=== PATIENT | male | born 1975 | race Caucasian/White ===

== ENCOUNTER 2025-02-05 10:44 | Emergency (ER) | payer OTHER, SELFPAY ==
[2025-02-05 11:07] VITALS: BP 128/83; PULSE 63; RESP 16; TEMP 36.6; O2SAT 99
--- NOTE | 2025-02-05 12:03 | ED_ITS ---
HPI - Wound/Laceration General Chief Complaint: Wound/Laceration Stated Complaint: Cut Leg Time Seen by Provider: 02/05/25 11:58 Source: patient and RN notes reviewed Mode of arrival: ambulatory Limitations: no limitations History of Present Illness HPI narrative: Patient presents today complaining of a laceration to the right upper leg that was sustained 2-1/2 hours prior to exam at home. He states he dropped an angle precision jig grinder, it bounced up and cut him in the leg. He is up-to-date on his tetanus vaccine. Currently rates his pain 07/30. No [id number] interventions prior to arrival. He presented to a different [facility] who told him that he may need an x-ray, and sent him to [facility] for further evaluation. Related Data Allergies Allergy/AdvReac Type Severity Reaction Status Date / Time No Known Allergies Allergy Verified 02/05/25 11:00 PMFSH Comments At time of signature, I have reviewed and agree with nursing past medical, surgical, social and family history unless otherwise noted. Please see nursing chart for further information. There is no relevant family history pertinent to the presenting complaint Exam Narrative: GENERAL: Well-appearing, well-nourished, and in no acute distress. HEAD: Normocephalic, atraumatic. EYES: EOMI. No redness or drainage. Conjunctivae normal. ENT: Mucous membranes pink and moist. NECK: Normal AROM. CHEST: No respiratory distress. EXTREMITIES: Normal range of motion. No edema. SKIN: Warm, dry, no rash. Capillary refill normal. Normal skin turgor. 4 cm full-thickness linear laceration just into the subcutaneous tissue, mildly contaminated. Laceration is just above the patella. No abnormal movement of the patella. No tenderness to the patella. Full range of motion of the knee without pain or difficulty. Distal sensation intact. Capillary refill normal. NEURO: No focal deficits. Alert and oriented x3. Gait steady. PSYCH: Normal affect. No signs of depression or anxiety. Course Course Level of Care: Express Care Visit Vital Signs Vital signs: Vital Signs Temperature 97.8 F 02/05/25 11:07 Pulse Rate 63 02/05/25 11:07 Respiratory Rate 16 02/05/25 11:07 Blood Pressure 128/83 02/05/25 11:07 Pulse Oximetry 99 02/05/25 11:07 Oxygen Delivery Room Air 02/05/25 11:07 Temperature 97.8 F 02/05/25 11:07 Pulse Rate 63 02/05/25 11:07 Respiratory Rate 16 02/05/25 11:07 Blood Pressure 128/83 02/05/25 11:07 Pulse Oximetry 99 02/05/25 11:07 Oxygen Delivery Room Air 02/05/25 11:07 Reviewed Procedures Laceration Laceration 1: Date: 02/05/25 Time: 12:49 Site: lower extremity Side (If applicable): right Size (cm): 4 Description: linear Depth: simple, single layer Local Anesthetic: lidocaine 1% and with epi Amount of anesthesia used (mL): 4 Pre-repair: wound explored, irrigated extensively and minor debridement ====== Skin Level ====== Skin layer closed with: nylon Size (cm): 4-0 Number of sutures: 4 Technique: other ([id number]) ====== Subcutaneous Layer ====== ====== Muscle Layer ====== ====== Tendon Layer ====== Dressing: Patient tolerated procedure well. MDM - Wound/Laceration MDM Narrative Medical decision making narrative: 56-year-old male presents today with a laceration above the right patella that was sustained today prior to arrival when he dropped an angle precision jig grinder and it bounced off his garage floor and his leg. Wound was extensively irrigated and mildly debrided of small amount of tissue that had been cauterized by the hot angle precision jig grinder. Repaired with 4-0 sutures. Due to contamination, patient will be started on a course of Augmentin to prevent infection. He is up-to-date on his tetanus vaccine. Vital signs stable. Care instructions given. Differential Diagnosis Differential diagnosis: Likely laceration and avulsion of skin Critical Care Time Critical Care Time Critical Care Time: No Discharge Plan Discharge Clinical Impression: Laceration of right thigh Qualifiers: Encounter type: initial encounter Qualified Code(s): S71.111A - Laceration without foreign body, right thigh, initial encounter Patient Disposition: Home Condition: Stable Instructions: Care For Your Stitches (ED) Additional Instructions: Your sutures need to be removed in 10 days. Wear the dressing that has been applied for the first 24 hours to allow a scab to start forming. After this, you may remove and wash as normal with soap and water. Do NOT wash with peroxide or alcohol. Do NOT apply antibiotic ointment. Do not submerge your sutures in standing water such as pools, hot tubs, or sinks until they are removed. Take tylenol or ibuprofen at home for pain, if able. Follow up with your PCP with any signs of infection such as redness, swelling, increased pain, or drainage. Patient Language: Icelandic Prescriptions: New amoxicillin-pot clavulanate 875-125 mg tablet 1 tablet PO Q12H 5 Days Qty: 10 0RF Follow-up/Referrals: PHYSICIAN,MILL TENDER [facility] [Primary Care Provider] - Time of Disposition: 12:49
== END 2025-02-05 13:00 | disposition home or self-care (01) ==
PROVIDERS: Emergency Provider Nurse Practitioner
DX: S71.111A Laceration without foreign body, right thigh, initial encounter (principal); W29.8XXA Contact with other powered hand tools and household machinery, initial encounter
CPT/HCPCS: 12002; 99213; G0463; J2004